=== PATIENT | female | born 1955 | race Two or more races ===

== ENCOUNTER 2020-07-21 08:35 | Inpatient (IN) | payer MEDICARE, BC ==
[~2020-07-21] VITALS: Ht 154.9 cm; Wt 78.6 kg
[2020-07-21] MEDS ORDERED: SODIUM CHLORIDE 0.9% 1,000 ML IVB ONE (09:00)
[2020-07-21 09:27] LABS: Eosinophils # (auto) 0.1 10 ^3/uL (0-0.8); Eosinophils % (auto) 1.2 % (0.0-7.0); Monocytes # (auto) 0.4 10 ^3/uL (0-1.3); Neutrophils # (auto) 3.6 10 ^3/uL (1.6-8.6); Nucleated Red Blood Cells % 0.1 %; White Blood Cell 6.7 10^3/uL (4.4-10.8)
[2020-07-21 09:29] LABS: Basophils # (auto) 0 10 ^3/uL (0-0.2); Basophils % (auto) 0.6 % (0.0-2.0); Hematocrit 42.2 % (36.0-46.0); Hemoglobin 13.7 g/dL (12.2-16.2); Lymphocytes # (auto) 2.6 10 ^3/uL (0.4-5.4); Lymphocytes % (auto) 38.9 % (10.0-50.0); Mean Corpuscular Hemoglobin 22.8 pg (28.0-32.0); Mean Corpuscular Hgb Conc. 32.4 g/dL (32.0-36.0); Mean Corpuscular Volume 70.4 fL (80.0-100.0); Monocytes % (auto) 5.9 % (0.0-12.0); Neutrophils % (auto) 53.4 % (37.0-80.0); Platelet Count (auto) 289 10^3/uL (140-450); Red Blood Cells 5.99 10^6/uL (4.0-5.20); Red Cell Distribution Width 19.8 % (11.8-14.3)
[2020-07-21] MEDS ORDERED: MORPHINE SULF INJ 2 MG/ML SYRINGE 1ML IV ONE ×2 (09:30→10:00)
[2020-07-21] MEDS ORDERED: ONDANSETRON HCL 4 MG/2 ML VIAL IV ONE (09:30)
[2020-07-21 09:45] LABS: Albumin 3.9 g/dL (3.4-5.0); BUN/Creatinine Ratio 14.4; Calcium 8.9 mg/dL (8.5-10.1)
[2020-07-21 09:48] LABS: Bilirubin, Total 0.5 mg/dL (0.2-1.0); Total Protein 7.3 g/dL (6.4-8.2)
[2020-07-21] MEDS ORDERED: TAMSULOSIN HYDROCHLORIDE 0.4 MG CAP PO ONE (10:00)
[2020-07-21] MEDS ORDERED: PROMETHAZINE HCL 25 MG/ML 1ML IV ONE (10:00)
[2020-07-21 11:09] LABS: Urine Bacteria NONE SEEN /hpf (None Seen); Urine Blood 2+ /uL (Negative); Urine Hyaline Cast MANY /lpf (0 - 2); Urine Mucus FEW (None Seen); Urine Specific Gravity 1.026 (1.001-1.035); Urine WBC 6 /hpf (0 - 5)
[2020-07-21] MEDS ORDERED: cefTRIAXone 1GM/50ML D5W 50 ML IV ONE (11:15)
[2020-07-21] MEDS ORDERED: SODIUM CHLORIDE 0.9% 1,000 ML IV ONE (11:15)
[2020-07-21] MEDS ORDERED: HYDROcodone-ACET 5/325MG TAB PO PRN (13:30)
[2020-07-21] MEDS ORDERED: NITROGLYCERIN 0.4 MG SL TAB SL PRN (13:30)
[2020-07-21] MEDS ORDERED: ONDANSETRON HCL 4 MG/2 ML VIAL IV PRN (13:30)
[2020-07-21] MEDS ORDERED: MORPHINE SULF INJ 2 MG/ML SYRINGE 1ML IV PRN ×2 (13:30)
[2020-07-21] MEDS ORDERED: ACETAMINOPHEN 500 MG TAB PO PRN (13:30)
[2020-07-21] MEDS: SODIUM CHLORIDE 0.9% 1,000 ML IV SCH ×2 (13:38→14:38)
[2020-07-21 17:04] VITALS: BP 121/62
[2020-07-21] MEDS ORDERED: TAMSULOSIN HYDROCHLORIDE 0.4 MG CAP PO SCH (18:00)
[2020-07-21 22:00] VITALS: BP 127/58
[2020-07-21] MEDS: DOCUSATE SOD 100 MG CAP PO SCH (22:00)
[2020-07-22 05:00] VITALS: BP 119/67
--- NOTE | 2020-07-22 07:00 | NUR ---
Opening Shift Note Assumed care of patient, awake and alert. A/O X 4. Lungs are clear, skin is in tact and bowel sounds are heard throughout. No S/S of distress/SOB or pain. IV disconnected due to the alarm frequency. Patient complaining of the continuous noise. Will reconnect with antibiotics. Patient instructed on the POC and to call PRN. Patient verbalized understanding. Bed is in the lowest position and the call light is within reach of the patient.
[2020-07-22 08:43] LABS: Basophils # (auto) 0 10 ^3/uL (0-0.2); Eosinophils # (auto) 0.1 10 ^3/uL (0-0.8); Eosinophils % (auto) 1.2 % (0.0-7.0); Mean Corpuscular Volume 71.9 fL (80.0-100.0); Monocytes # (auto) 0.4 10 ^3/uL (0-1.3); Neutrophils # (auto) 3.2 10 ^3/uL (1.6-8.6); White Blood Cell 5.6 10^3/uL (4.4-10.8)
[2020-07-22 08:46] LABS: Basophils % (auto) 0.3 % (0.0-2.0); Hematocrit 36.7 % (36.0-46.0); Hemoglobin 11.4 g/dL (12.2-16.2); Lymphocytes % (auto) 35.4 % (10.0-50.0); Mean Corpuscular Hemoglobin 22.4 pg (28.0-32.0); Mean Corpuscular Hgb Conc. 31.1 g/dL (32.0-36.0); Monocytes % (auto) 6.6 % (0.0-12.0); Neutrophils % (auto) 56.5 % (37.0-80.0); Nucleated Red Blood Cells % 0.1 %; Platelet Count (auto) 212 10^3/uL (140-450); Red Blood Cells 5.11 10^6/uL (4.0-5.20)
[2020-07-22 08:54] LABS: Red Cell Distribution Width 20.2 % (11.8-14.3)
[2020-07-22 08:58] LABS: BUN/Creatinine Ratio 11.5; Calcium 8.1 mg/dL (8.5-10.1); Potassium 4.2 mmol/L (3.5-5.1)
[2020-07-22] MEDS ORDERED: cefTRIAXone 1GM/50ML D5W 50 ML IV SCH (09:00)
[2020-07-22 09:24] VITALS: BP 112/72
[2020-07-22] MEDS: DOCUSATE SOD 100 MG CAP PO SCH (09:45)
[2020-07-22] MEDS ORDERED: FAMOTIDINE 20 MG TAB PO SCH (10:00)
--- NOTE | 2020-07-22 10:15 | NUR ---
Medication refused Patient refused Colace due to diarrhea she had yesterday and reported a BM today. Will inform the hospitalist during rounding.
[2020-07-22 12:54] VITALS: BP 126/79
--- NOTE | 2020-07-22 12:55 | NUR ---
Dr. Son at bedside Dr. Son at bedside discussing the POC with the patient and current pain level. Patient states she has no more pain. Dr. Son gave orders for discharge.
[2020-07-22 13:15] VITALS: BP 106/56
--- NOTE | 2020-07-22 13:58 | NUR ---
Discharged Discharge instructions given as ordered. Encouraged to follow up with Dr. Tejeda as instructed. New prescriptions given to the patient. All questions and concerns addressed. Patient verbalized understanding. IV removed with catheter intact, pressure dressing applied. Patient walked off the unit with all personal belongings, accompanied by staff. No distress noted at time of departure.
== END 2020-07-22 13:50 | disposition home or self-care (01) | DRG 690 ==
LOC: ER 08:35 → OVERFLOW 08:36 → EAST 14:57
PROVIDERS: ADMIT Nurse Practitioner Acute Care; ATTEND Family Medicine
DX: N13.6 Pyonephrosis (principal); E66.9 Obesity, unspecified; F41.9 Anxiety disorder, unspecified; N18.30 Chronic kidney disease, stage 3 unspecified; Z98.84 Bariatric surgery status; Z68.32 Body mass index [BMI] 32.0-32.9, adult
CPT/HCPCS: 36415; 74176; 80048; 80053; 81001; 83690; 85025; 87086; 96361; 96374; 96375; 96376; G0378; J0696; J2405

== ENCOUNTER 2023-08-17 07:30 | Emergency (ER) | payer MEDICARE, BC ==
[~2023-08-17] VITALS: Ht 154.9 cm; Wt 68.8 kg
[2023-08-17 08:06] VITALS: BP 138/73; PULSE 95; RESP 18; TEMP 98; O2SAT 100
[2023-08-17] MEDS ORDERED: cefTRIAXone SOD 500 MG VL IM ONE (08:45)
[2023-08-17] MEDS ORDERED: LIDOCAINE 1% HCL (LOCAL ANESTH.) INJ 20ML MDV IJ ONE (08:45)
[2023-08-17] MEDS ORDERED: ACET500T58 PO (08:58)
[2023-08-17] MEDS ORDERED: BENZ100C97 PO (08:58)
[2023-08-17] MEDS ORDERED: LORA10TA6 PO (08:58)
== END 2023-08-17 08:58 | disposition home or self-care (01) ==
LOC: ER 07:30
DX: J06.9 Acute upper respiratory infection, unspecified (principal); H92.03 Otalgia, bilateral
CPT/HCPCS: 96372; 99283; J0696; J2001

== ENCOUNTER → 2024-09-23 | Outpatient (CLI) | payer MEDICARE, BC ==
[~2024-09-23] MED LIST: ACET500T58 PO; BENZ100C97 PO; LORA10TA6 PO
[2024-09-23 08:53] LABS: Urine Bacteria None Seen /hpf (None Seen)
[2024-09-23 09:13] LABS: Urine Blood Negative /uL (Negative); Urine Clarity Turbid (Clear); Urine Color Light-Yellow (Yellow); Urine Hyaline Cast FEW /lpf (0 - 2); Urine Protein, UAD Negative (Negative); Urine Specific Gravity 1.019 (1.001-1.035); Urine Squamous Epithelial Cell FEW /hpf (<5); Urine Urobilinogen Normal (Negative); Urine WBC 6 /hpf (0 - 5)
[2024-09-23 09:44] LABS: Alanine Aminotransferase 13 U/L (7-40); Albumin 4.6 g/dL (3.2-4.8); Alkaline Phosphatase 96 U/L (46-116); Anion Gap 8 (5-15); Aspartate Aminotransferase 15 U/L (13-40); BUN/Creatinine Ratio 18.1 (10.0-20.0); Blood Urea Nitrogen 15 mg/dL (9-23); Calcium 10.2 mg/dL (8.7-10.4); Carbon Dioxide 26 mmol/L (20-31); Chloride 106 mmol/L (98-107); Glucose 100 mg/dL (74-106); HDL Cholesterol 43 mg/dL (40-59); Potassium 4.4 mmol/L (3.5-5.1); Sodium 140 mmol/L (136-145); Total Protein 6.6 g/dL (5.7-8.2); Triglycerides 139 mg/dL (< 150)
[2024-09-23 09:50] LABS: Bilirubin, Total 0.5 mg/dL (0.2-1.0)
[2024-09-23 09:53] LABS: Cholesterol 200 mg/dL (< 200); LDL Cholesterol 150 mg/dL (< 100)
[2024-09-23 10:15] LABS: Basophils # (auto) 0 10 ^3/uL (0-0.2); Basophils % (auto) 0.3 % (0.0-2.0); Eosinophils # (auto) 0.1 10 ^3/uL (0-0.8); Eosinophils % (auto) 1.2 % (0.0-7.0); Hematocrit 37.4 % (36.0-46.0); Hemoglobin 11.8 g/dL (12.2-16.2); Lymphocytes # (auto) 1.9 10 ^3/uL (0.4-5.4); Lymphocytes % (auto) 36.7 % (10.0-50.0); Mean Corpuscular Hemoglobin 20.6 pg (28.0-32.0); Mean Corpuscular Hgb Conc. 31.5 g/dL (32.0-36.0); Mean Corpuscular Volume 65.5 fL (80.0-100.0); Monocytes # (auto) 0.4 10 ^3/uL (0-1.3); Monocytes % (auto) 6.7 % (0.0-12.0); Neutrophils # (auto) 2.9 10 ^3/uL (1.6-8.6); Neutrophils % (auto) 55.1 % (37.0-80.0); Platelet Count (auto) 269 10^3/uL (140-450); Red Blood Cells 5.71 10^6/uL (4.0-5.20); Red Cell Distribution Width 21.1 % (11.8-14.3); White Blood Cell 5.2 10^3/uL (4.4-10.8)
[2024-09-23 10:17] LABS: Erythrocyte Sedimentation Rate 8 mm/hr (0-20)
[2024-09-23 10:28] LABS: Free T4 (Free Thyroxine) 1.1 ng/dL (0.89-1.76)
[2024-09-23 11:11] LABS: Anisocytosis Slight; Hypochromia Moderate; Ovalocytes FEW; Platelet Estimate Adequate
== END | disposition home or self-care (01) ==
LOC: LAB 08:36
PROVIDERS: ATTEND Internal Medicine
DX: K21.9 Gastro-esophageal reflux disease without esophagitis (principal); R53.83 Other fatigue; R07.9 Chest pain, unspecified; Z98.84 Bariatric surgery status
CPT/HCPCS: 36415; 80053; 80061; 81001; 82607; 84207; 84439; 84443; 85025; 85652

== ENCOUNTER 2025-02-24 09:06 | Outpatient (CLI) | payer MEDICARE, BC ==
[2025-02-24] MEDS: FUROSEMIDE 40 MG/4 ML VIAL ONE (09:52)
--- NOTE | 2025-02-24 17:32 | DVH ---
EXAM: NM NM MAG3 RENAL SCAN DATE OF SERVICE: 02/24/2025 09:48 AM ORDERING PHYSICIAN: Fausto Huizar REASON FOR EXAM: HYDRONEPHROSIS TECHNIQUE: During the injection of radiopharmaceutical, posterior flow images of the kidneys were ac quired immediately at one frame per second for one minute, immediately followed by posterior imaging at 2 minutes per frame for 40 minutes. Approximately 20 minutes after the radiopharmaceutical adminis tration, 40 mg IV of lasix was administered. Regions of interest were drawn around the kidneys and ti me activity curves were generated. Differential function was calculated. RADIOTRACER: 11 mCi technetium 99m COMPARISON: None FINDINGS: Blood flow images demonstrate prompt and symmetric flow to both kidneys with no focal defect. Functional images demonstrate a cortical transit time ([id number]) of 6.42 on the right and 6.42 on the left. There is new symmetric flow and uptake of radiotracer by both kidneys. Differential function (uptake %) 48.1 % by the right kidney and 51.9 % by the left kidney. After Lasix administration, there was adequate and prompt excretion from both collecting systems. The post-Lasix half-emptying time (diuretic T1/2) was 4.5 minutes on the right and 4.5 minutes on the left, which is within normal limits. IMPRESSION: 1. Unremarkable perfusion and function of both kidneys with no evidence of obstruction. 2. Differential renal function (uptake percent) of 48.1 % by the right kidney and 51.9 % by the left.
== END 2025-02-24 17:00 | disposition home or self-care (01) ==
LOC: XYW 09:06
PROVIDERS: ATTEND Urology
DX: N13.30 Unspecified hydronephrosis (principal)
CPT/HCPCS: 78707; A9562; J1938